=== PATIENT | female | born 1985 ===

== ENCOUNTER 2017-10-27 17:06 | Emergency (ER) | payer BC ==
[2017-10-27] MEDS ORDERED: HYDROcodone/ACETAMIN 5-325 MG* 1 TAB PO ONE ×2 (17:33→18:52)
[2017-10-27 17:46] VITALS: BP 150/84
--- NOTE | 2017-10-27 17:53 | RAD ---
INDICATION: Right ankle injury. TECHNIQUE: 3 views of the right ankle were obtained. FINDINGS: There is diffuse soft tissue swelling. There is an oblique comminuted fracture of the distal metaphysis of the tibia. The distal fragment is displaced one cortical diameter lateral relative to the proximal fragment. There also appears to be a nondisplaced fracture of the posterior malleolus. There is an oblique intra-articular fracture of the distal fibula the distal fragment is displaced one cortical diameter posterior relative to the proximal fragment. IMPRESSION: 1. OBLIQUE COMMINUTED SLIGHTLY DISPLACED FRACTURE OF THE DISTAL METAPHYSIS OF THE TIBIA. 2. NONDISPLACED FRACTURE OF THE POSTERIOR MALLEOLUS. 3. OBLIQUE INTRA-ARTICULAR SLIGHTLY DISPLACED FRACTURE OF THE DISTAL FIBULA.
--- NOTE | 2017-10-27 17:59 | RAD ---
INDICATION: Right foot injury. TECHNIQUE: 2 views of the right foot were obtained. FINDINGS: There is soft tissue swelling present mainly in the ankle and hindfoot. The bones are normal alignment. There is a 3 mm small calcific density adjacent to the inferior aspect of the cuboid bone only seen in the lateral view possibly representing a small fracture fragment. There is also a calcific density which projects laterally inferior and anterior to the distal fibula possibly representing a fracture fragment arising from the lateral talus or calcaneus. IMPRESSION: 1. THERE IS A 3 MM CALCIFIC DENSITY WHICH PROJECTS INFERIOR TO THE CUBOID BONE ON THE LATERAL VIEW POSSIBLY REPRESENTING A SMALL FRACTURE FRAGMENT VERSUS SOFT TISSUE CALCIFICATION. 2. THERE IS A FRACTURE FRAGMENT WHICH PROJECTS LATERALLY OVER THE HINDFOOT POSSIBLY ARISING FROM THE LATERAL TALUS OR CALCANEUS.
--- NOTE | 2017-10-27 18:13 | UC ---
Lower Extremity/Ankle HPI - HPI Summary HPI Summary: Pt presents with right ankle pain s/p fall. She was snowboarding at [place] earlier today and fell while doing so. Twisted her right ankle. Had immediate pain and was unable to bear weight. patrol community service officer came to get her and placed her in a cardboard splint. Her friend drove her here to Urgent Care. She has not taken anything for pain. Denies numbness, tingling, or hx of ankle injury. - History of Current Complaint Chief Complaint: UCLowerExtremity Stated Complaint: FALL Time Seen by Provider: 10/27/17 17:33 Hx Obtained From: Patient Hx Last Menstrual Period: 10/22/17 Onset/Duration: Sudden Onset Severity Initially: Severe Severity Currently: Severe Pain Intensity: 8 Pain Scale Used: 0-10 Numeric Aggravating Factor(s): Standing, Ambulation Alleviating Factor(s): Rest Able to Bear Weight: No - Allergies/Home Medications Allergies/Adverse Reactions: Allergies Allergy/AdvReac Type Severity Reaction Status Date / Time No Known Allergies Allergy Verified 10/27/17 17:47 Home Medications: Home Medications Levothyroxine TAB* [Synthroid 100 MCG TAB*] 1 tab PO DAILY 10/27/17 [History Confirmed 10/27/17] PMH/Surg Hx/FS Hx/Imm Hx Previously Healthy: Yes - Surgical History Surgical History: None - Family History Known Family History: Positive: Unknown - Social History Lives: With Family Alcohol Use: None Substance Use Type: None Smoking Status (MU): Never Smoked Tobacco Review of Systems Constitutional: Negative Skin: Negative Respiratory: Negative Cardiovascular: Negative Gastrointestinal: Negative Motor: Negative Neurovascular: Negative Musculoskeletal: Decreased ROM - Right ankle, Other: - Pain right ankle Neurological: Negative Psychological: Negative All Other Systems Reviewed And Are Negative: Yes Physical Exam Triage Information Reviewed: Yes Appearance: Well-Appearing, No Pain Distress, Well-Nourished Vital Signs: Initial Vital Signs Temp 98 F 10/27/17 17:43 Pulse 100 10/27/17 17:43 Resp 17 10/27/17 17:43 BP 150/84 10/27/17 17:43 Pulse Ox 98 10/27/17 17:43 Vital Signs Reviewed: Yes Neck: Positive: Supple, Nontender, Other: - FROM Respiratory: Positive: Lungs clear, Normal breath sounds, No respiratory distress Cardiovascular: Positive: RRR, No Murmur, Pulses Normal - Right DP and TP, Brisk Capillary Refill Musculoskeletal: Positive: ROM Limited @ - Right ankle due to pain, Edema @ - Right ankle - moderate, Other: - TTP all about right ankle. Worse on lateral malleolus and anterior. Neurological: Positive: Alert, Other: - Sensations intact right foot and all toes Psychological: Positive: Age Appropriate Behavior Skin: Negative: rashes Procedures - Splinting Location: Right ankle Hand-Made Type: orthoglass Splint: Sugar tong and posterior walking Pre-Proc Neuro Vasc Exam: normal Post-Proc Neuro Vasc Exam: normal Lower Extremity Course/Dx - Course Course Of Treatment: Ankle and foot XR: IMPRESSION: 1. OBLIQUE COMMINUTED SLIGHTLY DISPLACED FRACTURE OF THE DISTAL METAPHYSIS OF THE TIBIA. 2. NONDISPLACED FRACTURE OF THE POSTERIOR MALLEOLUS. 3. OBLIQUE INTRA-ARTICULAR SLIGHTLY DISPLACED FRACTURE OF THE DISTAL FIBULA. IMPRESSION: 1. THERE IS A 3 MM CALCIFIC DENSITY WHICH PROJECTS INFERIOR TO THE CUBOID BONE ON THE. LATERAL VIEW POSSIBLY REPRESENTING A SMALL FRACTURE FRAGMENT VERSUS SOFT TISSUE. CALCIFICATION. 2. THERE IS A FRACTURE FRAGMENT WHICH PROJECTS LATERALLY OVER THE HINDFOOT POSSIBLY. ARISING FROM THE LATERAL TALUS OR CALCANEUS. I called Dr. Hough (manager contact Orthopedics) and he viewed the XRs. Place in posterior and sugar tong splint and f/u tomorrow. Pt wishes to follow up in [place] (where she is from) - this was agreeable to Dr. Hough and myself. Pt was given norco in the clinic today and sent home with #4 tabs 5/325. Pt was placed in a posterior and sugar tong right ankle splint. Crutches provided with instructions for no weight bearing. F/u with Dr. Martinez ([place] [facility]) tomorrow. - Differential Dx/Diagnosis Provider Diagnoses: Closed OBLIQUE COMMINUTED DISPLACED FRACTURE OF THE DISTAL TIBIA. Closed NONDISPLACED FRACTURE OF THE POSTERIOR MALLEOLUS. Closed OBLIQUE INTRA-ARTICULAR DISPLACED FRACTURE OF THE DISTAL FIBULA Discharge - Discharge Plan Condition: Stable Disposition: HOME Patient Education Materials: Ankle Fracture (ED) Referrals: No Primary Care Phys,NOPCP [Primary Care Provider] - Juan CRUMP,Naren Phan [Medical Doctor] - Additional Instructions: If you develop a fever, shortness of breath, chest pain, new or worsening symptoms - please call your PCP or go to the ED. 1) Keep your splint clean, dry, and intact 2) Tomorrow morning, please call the Orthopedist - Dr. Martinez's office at [phone] - to schedule an appointment. They will see you sometime tomorrow. 3) Rest, Ice, and elevate your foot as much as possible over the next 24 hours. 4) May take ibuprofen 600mg every 6-8 hours as needed for pain. May also take [place] one tab every 6 hours as needed for pain.
== END 2017-10-27 19:05 | disposition home or self-care (01) ==
LOC: UCEAST 17:06
DX: S82.301A Unspecified fracture of lower end of right tibia, initial encounter for closed fracture (principal); S82.891A Other fracture of right lower leg, initial encounter for closed fracture; S82.831A Other fracture of upper and lower end of right fibula, initial encounter for closed fracture; W00.0XXA Fall on same level due to ice and snow, initial encounter; Y93.23 Activity, snow (alpine) (downhill) skiing, snowboarding, sledding, tobogganing and snow tubing; Y92.838 Other recreation area as the place of occurrence of the external cause
CPT/HCPCS: 99203; G0463